=== PATIENT | female | born 1995 | race Hispanic/Latino ===

== ENCOUNTER 2024-10-16 10:27 | Emergency (ER) | payer OTHER ==
[~2024-10-16] VITALS: Ht 157.5 cm; Wt 77.7 kg
[2024-10-16 10:35] VITALS: TEMP 98
[2024-10-16] MEDS ORDERED: AMOX875T PO (12:24)
[2024-10-16 12:27] VITALS: BP 118/72; O2SAT 99
== END 2024-10-16 12:28 | disposition home or self-care (01) ==
LOC: M ED 10:27
DX: J02.0 Streptococcal pharyngitis (principal); Z79.2 Long term (current) use of antibiotics